=== PATIENT | female | born 1995 | race Two or more races ===

== ENCOUNTER 2024-05-08 12:56 | Outpatient (CLI) | payer OTHER | END 2024-05-08 12:58 | disposition home or self-care (01) | LOC: PRENATAL 12:56 | PROVIDERS: ATTEND Obstetrics & Gynecology Maternal & Fetal Medicine | DX: O36.80X0 Pregnancy with inconclusive fetal viability, not applicable or unspecified (principal); Z36.82 Encounter for antenatal screening for nuchal translucency; Z14.8 Genetic carrier of other disease; Z3A.14 14 weeks gestation of pregnancy ==

== ENCOUNTER 2024-06-18 09:56 | Outpatient (CLI) | payer OTHER | END 2024-06-18 09:57 | disposition home or self-care (01) | LOC: PRENATAL 09:56 | PROVIDERS: ATTEND Obstetrics & Gynecology Maternal & Fetal Medicine | DX: O44.00 Complete placenta previa NOS or without hemorrhage, unspecified trimester (principal); Z3A.20 20 weeks gestation of pregnancy ==

== ENCOUNTER 2024-09-10 10:52 | Outpatient (CLI) | payer OTHER | END 2024-09-10 10:53 | disposition home or self-care (01) | LOC: PRENATAL 10:52 | PROVIDERS: ATTEND Obstetrics & Gynecology Maternal & Fetal Medicine | DX: O26.849 Uterine size-date discrepancy, unspecified trimester (principal); O36.8199 Decreased fetal movements, unspecified trimester, other fetus; O99.019 Anemia complicating pregnancy, unspecified trimester; Z3A.33 33 weeks gestation of pregnancy ==

== ENCOUNTER 2024-10-25 14:15 | Inpatient (IN) | payer OTHER ==
[~2024-10-25] VITALS: Ht 167.6 cm; Wt 92.5 kg
[2024-10-25 16:26] LABS: BASO % 0.2 % (0.1-1.2); EOS # 0.07 (0.04-0.54); EOS % 0.8 % (0.7-7.0); HEMATOCRIT 32.9 % (34.1-44.9); LYMPH # 2.27 (1.18-3.74); LYMPH % 26.6 % (19.3-53.1); MEAN CORPUSCULAR HEMOGLOBIN 28.1 pg (25.6-32.2); MONO # 0.48 (0.24-0.82); MONO % 5.6 % (4.7-12.5); NEUT # 5.67 (1.56-6.13); NEUT % 66.6 % (34.0-71.1); PLATELET COUNT 232 K/uL (163-369); RED BLOOD COUNT 3.92 M/uL (3.93-5.22); RED CELL DISTRIBUTION WIDTH 13.4 % (11.6-14.4)
[2024-10-25 16:27] LABS: URINE APPEARANCE Clear; URINE BILIRRUBIN Negative (NEGATIVE); URINE BLOOD Negative; URINE COLOR Yellow; URINE GLUCOSE Negative (NEGATIVE); URINE KETONE 15 (NEGATIVE); URINE LEUKOCYTE Small; URINE NITRATE Negative; URINE PROTEIN Negative (NEGATIVE); URINE UROBILINOGEN 0.2 E.U./dl
[2024-10-25 16:32] LABS: URINE BACTERIA 1297.3 uL (0.0-1933); URINE EPITHELIAL CELLS 38.7 uL (0.0-38.8); URINE RBC 4.1 uL (0.0-20.8); URINE WBC 51.6 uL (0.0-23.2)
[2024-10-25 16:35] LABS: URINE CAST 0.29 uL (0.0-1.40)
[2024-10-25 16:47] LABS: INR 1.17; PARTIAL THROMBOPLASTIN TIME 26.2 SECONDS (22.0-34.0); PROTHROMBIN TIME 12.6 SECONDS (9.0-11.5)
[2024-10-25 16:49] LABS: URINE MUCUS SCANT; URINE YEAST MODERATE /hpf
[2024-10-25 16:54] LABS: BILIRUBIN TOTAL 0.3 mg/dL (0.3-1.2); CALCIUM 9.6 mg/dL (8.5-10.1); CREATININE SERUM 0.69 mg/dL (0.55-1.02); GFR 102.06; GLOBULINA 3.9 G/DL (2.4-3.5); POTASSIUM 4.26 mEq/L (3.5-5.1); TOTAL PROTEIN 6.9 gm/dL (6.4-8.2)
[2024-11-05] VITALS (7 sets, daily range): BP systolic 111–141; BP diastolic 63–82
[2024-11-05] MEDS ORDERED: PRENATAL TABLE1 EAC1 PO (06:23)
[2024-11-05] MEDS ORDERED: RINGERS SOLUTION,LACTATED 1,000 ML IV SCH (06:45)
[2024-11-05] MEDS ORDERED: MISOPROSTOL 25 MCG/4 ML GEL.W.APPL ONE ×2 (07:46→16:35)
[2024-11-05] MEDS ORDERED: MISOPROSTOL 25 MCG/4 ML GEL.W.APPL VAG NR (08:00)
[2024-11-05] MEDS ORDERED: MISOPROSTOL 25 MCG/4 ML GEL.W.APPL VAG ONE ×2 (12:30→16:45)
[2024-11-05] MEDS ORDERED: MORPHINE SULFATE 4 MG/ML VIAL IV ONE (16:45)
[2024-11-06] MEDS ORDERED: MORPHINE SULFATE 4 MG/ML CARTRIDGE IV ONE (00:15)
[2024-11-06 04:03] VITALS: BP 104/81; O2SAT 100
[2024-11-06] MEDS ORDERED: ERYTHROMYCIN BASE OPHT 1GM EACH TUBE OP ONE (06:11)
[2024-11-06] MEDS ORDERED: OXYTOCIN 20 UNITS/1000ML RL PIGGYBAG IV ONE (06:11)
[2024-11-06] MEDS ORDERED: LIDOCAINE HCL 1% 10ML VIAL ONE (06:11)
[2024-11-06] MEDS ORDERED: CHLORHEXIDINE GLUCONATE 120 ML BOTTLE TOP ONE (06:11)
[2024-11-06] MEDS ORDERED: OXYTOCIN 1,000 ML IV SCH (07:15)
[2024-11-06] MEDS ORDERED: AMPICILLIN SODIUM 2,000 MG VIAL IV ONE (07:15)
[2024-11-06] MEDS ORDERED: IBUprofen 400 MG TABLET PO PRN (07:15)
[2024-11-06] MEDS ORDERED: CHLORHEXIDINE GLUCONATE 120 ML BOTTLE TOP SCH (07:15)
[2024-11-06 07:45] VITALS: BP 123/71
[2024-11-06 11:50] VITALS: BP 135/68
[2024-11-06 14:52] VITALS: BP 114/74
[2024-11-06 16:07] VITALS: BP 114/71
[2024-11-07 01:32] VITALS: BP 116/76
[2024-11-07 06:29] LABS: BASO % 0.2 % (0.1-1.2); EOS % 0.6 % (0.7-7.0); HEMATOCRIT 30.5 % (34.1-44.9); HEMOGLOBIN 10.3 g/dL (11.2-15.7); LYMPH # 3.49 (1.18-3.74); MEAN CORPUSCULAR HEMOGLOBIN 28.2 pg (25.6-32.2); MONO # 0.99 (0.24-0.82); MONO % 5.7 % (4.7-12.5); NEUT # 12.72 (1.56-6.13); PLATELET COUNT 216 K/uL (163-369); RED BLOOD COUNT 3.65 M/uL (3.93-5.22); RED CELL DISTRIBUTION WIDTH 14.1 % (11.6-14.4)
[2024-11-07 08:26] VITALS: BP 124/75
[2024-11-07 16:05] VITALS: BP 124/85
[2024-11-08] VITALS: BP 116/77
[2024-11-08 10:14] VITALS: BP 120/80
== END 2024-11-08 13:15 | disposition home or self-care (01) | DRG 807 ==
LOC: LDR 11-05 05:55 → OB/GYN 11-06 13:52
PROVIDERS: ADMIT Obstetrics & Gynecology; ATTEND Obstetrics & Gynecology
PROC: 3E0P7VZ Introduction of Hormone into Female Reproductive, Via Natural or Artificial Opening (ICD-10-PCS; 2024-11-05)
PROC: 4A1HXCZ Monitoring of Products of Conception, Cardiac Rate, External Approach (ICD-10-PCS; 2024-11-05)
PROC: 10E0XZZ Delivery of Products of Conception, External Approach (ICD-10-PCS; principal; 2024-11-06)
PROC: 0UQG7ZZ Repair Vagina, Via Natural or Artificial Opening (ICD-10-PCS; 2024-11-06)
PROC: 3E033VJ Introduction of Other Hormone into Peripheral Vein, Percutaneous Approach (ICD-10-PCS; 2024-11-06)
DX: O71.4 Obstetric high vaginal laceration alone (principal); Z37.0 Single live birth; Z3A.40 40 weeks gestation of pregnancy